=== PATIENT | male | born 1935 | race Caucasian/White ===

== ENCOUNTER 2017-08-12 11:17 | Emergency (ER) | payer OTHER ==
[~2017-08-12] VITALS: Ht 175.3 cm; Wt 86.2 kg
[~2017-08-12 11:17] MED LIST: ACET325 PO; ALBU90OI INH; AMIO200 PO; ASPI325 PO; ASPI81CH PO; ASPI81EC PO; Amiodarone HCl200 MG PO; Antivert25 MG; BECL80OI INH; BUDE6HFA INH; CEPH500 PO; CLIN300 PO; CLOP75 PO; DIAZ10 PO; Diclofenac Sod2.5 ML; ESCI10 PO; FAMO10 PO; FISH1000 PO; FURO20 PO; FURO40 PO; HYDACE5 PO; HYDMOR2 PO; IPRA.06NI; LAVAP17G; LEVFLO500 PO; LISI10 PO; LISI5 PO; LISINOPRIL; Lisinopril2.5 MG PO; MAGOXI400 PO; METO25 PO; METO25ER PO; METO50ER PO; MULVITMINF PO; Micro-K10 MEQ PO; NITR.3SL SL; NITR.4SL; NITR.6SL SL; OFLO.3OPSO; OXYACE7.5T PO; POTCHL20ER PO; PRAV20 PO; PROC10 PO; SILD50TA; SILD50TA PO; STOOL SOFTENER1 EAC1; SULTRIDS PO; TOPROL XL; VITB2; WARF7.5 PO; XARELTO15 MG PO; [UNRECOGNIZED DRUG - CODE] TOP
[2017-08-12] MEDS ORDERED: FUROSEMIDE PO (11:44)
[2017-08-12] MEDS ORDERED: XARELTO15 MG PO (11:53)
== END 2017-08-12 14:05 | disposition short-term general hospital (02) ==
LOC: ER 11:17
DX: T17.898A Other foreign object in other parts of respiratory tract causing other injury, initial encounter (principal); Z88.8 Allergy status to other drugs, medicaments and biological substances; Z79.899 Other long term (current) drug therapy; Z79.2 Long term (current) use of antibiotics
CPT/HCPCS: 71046; 99285

== ENCOUNTER 2018-09-07 11:26 | Day surgery (SDC) | payer OTHER ==
[~2018-09-07] VITALS: Ht 175.3 cm; Wt 91.2 kg
[~2018-09-07 11:26] MED LIST changes: +CYCL10 PO; +FUROSEMIDE PO; +GABA300 PO; +LOSA25 PO; +NITR.4SL SL; +SPIR25 PO
--- NOTE | 2018-09-07 13:03 | NUR ---
Ambulatory in Day Surgery. Patient states colon prep results clear. History, Chart, Medications and Allergies reviewed before start of procedure. Lungs clear T/O to Auscultation. Patient confirms NPO status and agrees with scheduled surgery. Pre-Op teaching done. Pt verbalizes understanding. Patient States Post-Procedure ride home has been arranged. Nelda is providing his ride home.
--- NOTE | 2018-09-07 13:11 | NUR ---
"DAY SURGERY RN | THIS RN TO COVER FOR SALVATORE RN, REPORT OBTAINED AND VERSED GIVEN IN LABELED SYRINGE TO THIS RN."
--- NOTE | 2018-09-07 13:19 | NUR ---
09/07/18 1319 Lazaro Shane Patient to ENDO 1History, Chart, Medications and Allergies reviewed before start of procedure. MONITOR INTACT WITH CONTINUOUS PULSE OXIMETRY AND INTERMITTENT BP.O2 VIA N/C INTACT THROUGHOUT SEDATION/PROCEDURE.See Anesthesia record
--- NOTE | 2018-09-07 14:11 | NUR ---
PT AWAKE, EATING CRACKERS AND HAS DRANK FULL JUICE. PT DENIES PAIN.
== END 2018-09-07 14:40 | disposition home or self-care (01) ==
LOC: ORSCMMR 11:26 → SURS 11:28 → ORD 13:00 → ORSCMMR 13:00
PROVIDERS: Internal Medicine Gastroenterology
PROC: 0DBN8ZX Excision of Sigmoid Colon, Via Natural or Artificial Opening Endoscopic, Diagnostic (ICD-10-PCS; principal; 2018-09-07 13:00)
PROC: 0DBM8ZX Excision of Descending Colon, Via Natural or Artificial Opening Endoscopic, Diagnostic (ICD-10-PCS; principal; 2018-09-07 13:00)
DX: R19.5 Other fecal abnormalities (principal); K63.5 Polyp of colon; Z86.010 Personal history of colon polyps; K57.30 Diverticulosis of large intestine without perforation or abscess without bleeding; I12.9 Hypertensive chronic kidney disease with stage 1 through stage 4 chronic kidney disease, or unspecified chronic kidney disease; N18.9 Chronic kidney disease, unspecified; G47.33 Obstructive sleep apnea (adult) (pediatric); I48.91 Unspecified atrial fibrillation; Z79.01 Long term (current) use of anticoagulants; I25.10 Atherosclerotic heart disease of native coronary artery without angina pectoris; Z79.899 Other long term (current) drug therapy
CPT/HCPCS: 88305; J2250; J7120

== ENCOUNTER → 2019-02-28 | Outpatient (CLI) | payer OTHER | END | disposition home or self-care (01) | LOC: PLD 13:57 → LAB SHORT 13:57 | DX: D48.5 Neoplasm of uncertain behavior of skin (principal) | CPT/HCPCS: 88305 ==

== ENCOUNTER 2019-07-17 10:03 | Day surgery (SDC) | payer OTHER | END 2019-07-17 22:40 | disposition home or self-care (01) | LOC: CT 10:03 | DX: C78.01 Secondary malignant neoplasm of right lung (principal); C80.1 Malignant (primary) neoplasm, unspecified; I13.0 Hypertensive heart and chronic kidney disease with heart failure and stage 1 through stage 4 chronic kidney disease, or unspecified chronic kidney disease; N18.9 Chronic kidney disease, unspecified; I50.9 Heart failure, unspecified; I48.91 Unspecified atrial fibrillation; I25.10 Atherosclerotic heart disease of native coronary artery without angina pectoris; M35.00 Sjogren syndrome, unspecified; J45.909 Unspecified asthma, uncomplicated; G50.0 Trigeminal neuralgia; I25.9 Chronic ischemic heart disease, unspecified; E78.5 Hyperlipidemia, unspecified; E78.00 Pure hypercholesterolemia, unspecified; D47.2 Monoclonal gammopathy; G47.33 Obstructive sleep apnea (adult) (pediatric); Z95.1 Presence of aortocoronary bypass graft; Z95.5 Presence of coronary angioplasty implant and graft; Z85.828 Personal history of other malignant neoplasm of skin; Z88.1 Allergy status to other antibiotic agents; Z88.8 Allergy status to other drugs, medicaments and biological substances; Z79.01 Long term (current) use of anticoagulants; Z79.899 Other long term (current) drug therapy | CPT/HCPCS: 32405; 77012; 88305; 88341; 88342 ==

== ENCOUNTER 2019-08-02 15:01 | Emergency (ER) | payer OTHER ==
[~2019-08-02] VITALS: Ht 180.3 cm; Wt 77.1 kg
[2019-08-02 16:16] LABS: BASOPHILS ABSOLUTE AUTO 0.04 K/mm3 (0.00-0.23); BASOPHILS PERCENT AUTO 1 % (0-2); EOSINOPHILS ABSOLUTE AUTO 0.19 K/mm3 (0.00-0.68); EOSINOPHILS PERCENT AUTO 2 % (0-6); Hematocrit 33.7 % (37.0-53.0); Hemoglobin 10.8 g/dL (13.5-17.5); IMMATURE GRAN ABSOLUTE AUTO 0.05 K/mm3 (0.00-0.10); IMMATURE GRAN PERCENT AUTO 1 % (0-1); LYMPHOCYTES ABSOLUTE AUTO 0.66 K/mm3 (0.84-5.20); LYMPHOCYTES PERCENT AUTO 8 % (21-46); MONOCYTES ABSOLUTE AUTO 1.05 K/mm3 (0.16-1.47); MONOCYTES PERCENT AUTO 12 % (4-13); Mean Corpuscular HGB 30.3 pg (26.0-34.0); Mean Corpuscular Volume 94 fL (80-100); Mean Platelet Volume 9.1 fL (9.1-12.4); NEUTROPHILS ABSOLUTE AUTO 6.47 K/mm3 (1.96-9.15); NEUTROPHILS PERCENT AUTO 77 % (41-73); Platelet Count 369 K/mm3 (150-400); RDW Coefficient Variation 14.1 % (11.7-14.2); RDW Standard Deviation 47.9 fL (35.1-46.3); Red Blood Cell Count 3.57 M/mm3 (4.30-5.90); White Blood Cell Count 8.46 K/mm3 (4.00-11.30)
[2019-08-02 16:49] LABS: Alanine Aminotransfer (ALT/SGP 19 U/L (12-78); Albumin, Blood 2.3 g/dL (3.4-5.0); Albumin/Globulin Ratio 0.5 (0.8-1.8); Alk Phos 114 U/L (50-136); Anion Gap 6 mmol/L (6-16); Aspartate Aminotrans (AST/SGOT 18 U/L (12-37); Blood Urea Nitrogen 25 mg/dL (8-24); Bun/Creatinine Ratio 23.4 (12.0-20.0); CO2, Blood 35 mmol/L (21-32); Calcium, Blood 8.5 mg/dL (8.5-10.1); Chloride, Blood 90 mmol/L (98-108); Creatinine, Blood 1.07 mg/dL (0.60-1.20); Glomerular Filtration Rate >60 (60-); Glucose, Blood 100 mg/dL (70-99); Potassium, Blood 3.8 mmol/L (3.5-5.5); Sodium, Blood 131 mmol/L (136-145); Total Protein, Blood 7.3 g/dL (6.4-8.2)
[2019-08-02 16:50] LABS: Bilirubin, Total 0.5 mg/dL (0.1-1.0)
[2019-08-02 17:15] LABS: Source, Urine Voided
[2019-08-02 17:22] LABS: Bilirubin, Urine Neg (Neg); Blood, Urine Neg (Neg); Glucose Qualitative, Urine Neg (Neg); Ketones, Urine Neg (Neg); Leukocyte Esterase, Urine Neg (Neg); Nitrite, Urine Neg (Neg); Protein, Urine Neg (Neg); Urobilinogen, Urine NORM (Normal)
[2019-08-02 17:32] LABS: Appearance, Urine Clear (Clear); Color, Urine Yellow (P-Yellow)
[2019-08-02] MEDS ORDERED: Moviprep Powde1 EACH PO (17:44)
== END 2019-08-02 18:00 | disposition home or self-care (01) ==
LOC: ER 15:01
PROVIDERS: Emergency Medicine
DX: K59.00 Constipation, unspecified (principal); Z88.1 Allergy status to other antibiotic agents; Z88.8 Allergy status to other drugs, medicaments and biological substances; Z79.899 Other long term (current) drug therapy; I48.91 Unspecified atrial fibrillation; I25.10 Atherosclerotic heart disease of native coronary artery without angina pectoris; J90 Pleural effusion, not elsewhere classified
CPT/HCPCS: 36415; 74018; 80053; 81003; 85025; 96360; 96361; 99284-25; J7030